=== PATIENT | male | born 1970 | race Caucasian/White ===

== ENCOUNTER → 2019-12-30 | Outpatient (CLI) | payer BC ==
--- NOTE | 2019-12-30 14:50 | KCIC ---
MRI Cervical Spine Without Contrast History: Cervicalgia, upper extremity symptoms worse with tilting head, headaches, previous fusion, numbness left hand for several months Technique: Multiplanar, multi sequential noncontrast MR imaging was performed of the cervical spine. Comparison: November 09, [address] exam June 22, 2015 Findings: There is some motion. There again has been anterior cervical fusion C5, C6, C7. Exam does not accurately evaluate integrity of hardware, interbody fusion not apparent. Cervical vertebral body stature is overall maintained. There is again mild reversal of the lordotic curvature centered near C4-5. There is again very minimal grade 1 anterior spondylolisthesis C4-C5, very minimal posterior subluxation C5 relative to C6. There is no convincing significant marrow edema allowing for artifact created by hardware. There is minimal degenerative disc disease C4-5. Cervical cord caliber is within normal limits without defined or expansile signal change, limited evaluation for subtle signal change due to motion. C2-C3: There is severe right facet hypertrophic change, to lesser degree on the left. There is mild right uncovertebral degenerative change. Left neural foramen and spinal canal are adequate, again moderate to severe narrowing of the right neural foramen. C3-C4: There is severe left facet hypertrophic change as seen previously. There is mild left uncovertebral degenerative change. There is again severe narrowing of the left neural foramen. Right neural foramen and spinal canal are adequate. C4-C5: There is again moderate to severe left facet degenerative change, to lesser degree on the right. There is mild buckling of the ligamentum flavum. Central canal is minimally narrowed about 9 mm. There is increased uncovertebral degenerative change greater on the left. There is increased moderate to severe narrowing of the left neural foramen. Right neural foramen is not significantly narrowed. C5-C6: There are again some posterior osteophytes slightly indenting the ventral thecal sac, central canal narrowed to about 7 mm. There is facet and uncovertebral degenerative change greater on the right. There is suspected [id number] of the right neural foramen, left neural foramen not significantly narrowed. C6-C7: There are again posterior osteophytes/disc osteophyte complex, superimposed bulge/protrusion more eccentric to the far left lateral recess, present on previous MRI exam. Central canal is narrowed to about 7 to 8 mm with a somewhat greater degree of left lateral recess stenosis. There is uncovertebral degenerative change bilaterally greater on the left. There is again fairly severe narrowing of the left neural foramen, mild to moderate narrowing on the right. C7-T1: There is facet degenerative change bilaterally. Spinal canal is adequate. There is right uncovertebral degenerative change. There is likely increased [id number] narrowing of the right neural foramen, left neural foramen not significantly narrowed. Impression: 1. There is again anterior cervical fusion hardware C5, C6, C7. 2. There is spinal stenosis about 7 mm at C5-6 and to a somewhat lesser degree C6-7 and minimally at C4-5 as described. 3. There is multilevel facet and uncovertebral degenerative change contributing to multilevel cervical neural foramina compromise as described, greatest on the left at C6-7, C4-5, and C3-C4 and on the right at C2-3. There is a lesser degree of narrowing at other levels as described. Electronically signed by: Augie Montesinos MD (12/30/2019 2:47 PM) [id number]
== END | disposition home or self-care (01) ==
LOC: KCIC MRI 12:33
PROVIDERS: ATTEND Physician Assistant Medical
DX: M43.12 Spondylolisthesis, cervical region (principal); M47.813 Spondylosis without myelopathy or radiculopathy, cervicothoracic region; M48.03 Spinal stenosis, cervicothoracic region; M25.78 Osteophyte, vertebrae
CPT/HCPCS: 72141